=== PATIENT | male | born 1975 | race Caucasian/White ===

== ENCOUNTER 2016-07-07 15:57 | Emergency (ER) ==
[2016-07-07 16:03] VITALS: BP 107/75; TEMP 98.3; BMI 26.6
--- NOTE | 2016-07-07 16:27 | ED.PDOC ---
General ED Provider: Dr. CORTNEY LOPEZ-ER Chief Complaint: Ankle Pain/Injury Stated Complaint: im under tx for bone infection from dr holt [place] [facility] [employer]- -im on antbx and have appt soon for recheck but i am out of my pain meds Time Seen by Physician: 16:25 Mode of Arrival: Wheelchair Information Source: Patient Exam Limitations: No limitations Primary Care Provider: RADHA CODY Nursing and Triage Documentation Reviewed and Agree: Yes Musculoskeletal Complaint Exam - Ankle/Foot Complaint/Exam Location of Injury: Reports: Left, Ankle, Foot Mechanism of Injury: Reports: Trauma Onset/Duration: several days Symptoms Are: Reports: Still present Onset of Pain: Reports: Immediate Initial Severity: Mild Current Severity: Moderate Location: Reports: Discrete (left foot ankle) Character: Reports: Dull, Aching Alleviating: Reports: None Aggravating: Reports: Movement, Weight bearing Able to Bear Weight: No Associated Signs and Symptoms: Denies: Swelling, Redness, Bruising, Fever, Weakness, Numbness, Tingling Gout Risk Factors: Reports: >40 years old, Male Related Surgical History: Reports: Left, Ankle Lower Extremity Findings: Present: Erythema, Tenderness Achilles Tendon Abnormality: No Tenderness: Present: Lateral malleolus Limited Range of Motion: Present: Inversion, Eversion Differential Diagnosis: Infection Review of Systems - Review Of Systems Constitutional: Reports: No symptoms Eyes: Reports: No symptoms Ears, Nose, Mouth, Throat: Reports: No symptoms Respiratory: Reports: No symptoms Cardiac: Reports: No symptoms GI: Reports: No symptoms : Reports: No symptoms Musculoskeletal: Reports: Joint pain Skin: Reports: No symptoms Neurological: Reports: No symptoms Endocrine: Reports: No symptoms Hematologic/Lymphatic: Reports: No symptoms All Other Systems: Reviewed and Negative Past Medical History - Past Medical History Endocrine: Reports: Unknown Cardiovascular: Reports: Unknown Respiratory: Reports: Unknown Hematological: Reports: Unknown Gastrointestinal: Reports: Unknown Genitourinary: Reports: Unknown Neuro/Psych: Reports: Unknown Musculoskeletal: Reports: Unknown Cancer: Reports: Unknown - Surgical History General Surgical History: Reports: Unknown - Family History Family History: Reports: Unknown - Social History Smoking Status: Never smoker Hx Substance Use: No Alcohol Screening: None Lives: With family Physical Exam - Physical Exam Appearance: Well-appearing Pain Distress: Moderate Eyes: PACO, EOMI, Conjunctiva clear ENT: Ears normal, Nose normal, Oropharynx normal Neck: Supple Respiratory: Airway patent, Breath sounds clear, Breath sounds equal, Respirations nonlabored Cardiovascular: RRR, Pulses normal, No rub, No murmur GI/: Soft, Nontender, No masses, Bowel sounds normal, No Organomegaly Musculoskeletal: Limited ROM Skin: Warm, Dry, Normal color Neurological: Sensation intact Psychiatric: Affect appropriate, Mood appropriate Critical Care Note - Critical Care Note Total Time (mins): 0 Course - Course Vital Signs: Temp Pulse Resp BP Pulse Ox 07/07/16 15:58 98.3 F 83 18 107/75 95 Departure - Departure Time of Disposition: 16:27 Disposition: HOME SELF-CARE Discharge Problem: Osteomyelitis Qualifiers: Osteomyelitis location: ankle Laterality: left Chronicity: chronic Qualifier Code: (M86.672) Other chronic osteomyelitis, left ankle and foot Instructions: Osteomyelitis (ED) Condition: Good Pt referred to PMD for follow-up: Yes Additional Instructions: continue antbx and wound care and dressing changes--norco 10mg qid prn pain #16- --f/u with your doctor Allergies/Adverse Reactions: Allergies hydromorphone [From Dilaudid] Adverse Reaction (Verified 07/07/16 16:03) Penicillins Adverse Reaction (Verified 07/07/16 16:03) Home Medications: Ambulatory Orders 1 [No Reported Medications] 07/07/16 Disposition Discussed With: Patient, Family
== END 2016-07-07 16:33 | disposition home or self-care (01) ==
LOC: ED 15:57
DX: M86.672 Other chronic osteomyelitis, left ankle and foot (principal)
CPT/HCPCS: 99282

== ENCOUNTER 2016-07-29 00:31 | Emergency (ER) ==
--- NOTE | 2016-07-29 00:40 | ED.PDOC ---
General ED Provider: Dr. CORTNEY LOPEZ-ER Chief Complaint: Foot Pain/Injury Stated Complaint: my heel is broken--i called my ortho in [place] today--didnt get a call back--ran out of pills today Time Seen by Physician: 00:38 Mode of Arrival: Walk-In Information Source: Patient Exam Limitations: No limitations Nursing and Triage Documentation Reviewed and Agree: Yes Musculoskeletal Complaint Exam - Ankle/Foot Complaint/Exam Location of Injury: Reports: Left, Foot Mechanism of Injury: Reports: Trauma Onset/Duration: several weeks Symptoms Are: Reports: Still present Onset of Pain: Reports: Immediate Initial Severity: Mild Current Severity: Moderate Location: Reports: Discrete Character: Reports: Dull, Aching Alleviating: Reports: None Aggravating: Reports: Movement, Weight bearing, Prolonged standing Able to Bear Weight: No Associated Signs and Symptoms: Reports: Swelling. Denies: Redness, Bruising, Fever, Weakness, Numbness, Tingling Gout Risk Factors: Reports: None Related Surgical History: Reports: None Lower Extremity Findings: Present: Swelling, Tenderness, Limited range of motion Achilles Tendon Abnormality: No Tenderness: Present: Heel Differential Diagnosis: Closed Fracture Review of Systems - Review Of Systems Constitutional: Reports: No symptoms Eyes: Reports: No symptoms Ears, Nose, Mouth, Throat: Reports: No symptoms Respiratory: Reports: No symptoms Cardiac: Reports: No symptoms GI: Reports: No symptoms : Reports: No symptoms Musculoskeletal: Reports: Other Skin: Reports: No symptoms Neurological: Reports: No symptoms Endocrine: Reports: No symptoms Hematologic/Lymphatic: Reports: No symptoms All Other Systems: Reviewed and Negative Past Medical History - Past Medical History Endocrine: Reports: Unknown Cardiovascular: Reports: Unknown Respiratory: Reports: Unknown Hematological: Reports: Unknown Gastrointestinal: Reports: Unknown Genitourinary: Reports: Unknown Neuro/Psych: Reports: Unknown Musculoskeletal: Reports: Unknown Cancer: Reports: Unknown - Surgical History General Surgical History: Reports: Unknown - Family History Family History: Reports: Unknown - Social History Smoking Status: Never smoker Hx Substance Use: No Alcohol Screening: None Lives: With family Physical Exam - Physical Exam Appearance: Well-appearing, No pain distress, Well-nourished Pain Distress: Moderate Eyes: PACO, EOMI, Conjunctiva clear ENT: Ears normal, Nose normal, Oropharynx normal Neck: Supple Respiratory: Airway patent, Breath sounds clear, Breath sounds equal, Respirations nonlabored Cardiovascular: RRR, Pulses normal, No rub, No murmur GI/: Soft, Nontender, No masses, Bowel sounds normal, No Organomegaly Musculoskeletal: Limited ROM Skin: Warm, Dry, Normal color Neurological: Sensation intact Psychiatric: Affect appropriate, Mood appropriate Critical Care Note - Critical Care Note Total Time (mins): 0 Departure - Departure Time of Disposition: 00:39 Disposition: HOME SELF-CARE Discharge Problem: Injury of foot Instructions: Calcaneal Fracture (ED) Condition: Good Pt referred to PMD for follow-up: Yes Additional Instructions: percocet 10mg q 4hrs prn#4---f/u wtih ortho tomorrow Allergies/Adverse Reactions: Allergies hydromorphone [From Dilaudid] Adverse Reaction (Verified 07/07/16 16:03) Penicillins Adverse Reaction (Verified 07/07/16 16:03) Home Medications: Ambulatory Orders 1 [No Reported Medications] 07/07/16 Disposition Discussed With: Patient, Family
[2016-07-29 00:54] VITALS: BP 102/60; TEMP 97.7; BMI 17.6
== END 2016-07-29 01:05 | disposition home or self-care (01) ==
LOC: ED 00:31
DX: S92.002A Unspecified fracture of left calcaneus, initial encounter for closed fracture (principal)
CPT/HCPCS: 99282

== ENCOUNTER 2016-07-30 00:01 | Emergency (ER) ==
[2016-07-30 00:01] VITALS: BMI 17.6
[2016-07-30 00:14] VITALS: BP 103/70; TEMP 99.2
--- NOTE | 2016-07-30 00:46 | ED.PDOC ---
General ED Provider: Dr. KORY PHILLIPS Chief Complaint: Wound Check Stated Complaint: Patient was here yesterday for the same reason, wanting pain medications, as he gets them from the doctor in [place], they mailed him the medications he should get them Time Seen by Physician: 00:43 Mode of Arrival: Walk-In Information Source: Patient Nursing and Triage Documentation Reviewed and Agree: Yes Skin Complaint Exam - Skin/Soft Tissue Complaint/Exam Symptoms Are: Still present Timing: Constant Initial Severity: Moderate Current Severity: Moderate Character: Reports: Swelling, Painful Aggravating: Reports: Touch Alleviating: Reports: None Associated Signs and Symptoms: Reports: Tenderness. Denies: Fever, Chills, Itching, Drainage, Bruising, Red streaks, Joint swelling Related History: Reports: Similar episode Related Surgical History: Reports: None Skin Findings: Present: Erythema (open wound on the left heal, ) Differential Diagnoses: Infection (chronic) Review of Systems - Review Of Systems Constitutional: Reports: No symptoms Eyes: Reports: No symptoms Ears, Nose, Mouth, Throat: Reports: No symptoms Respiratory: Reports: No symptoms Cardiac: Reports: No symptoms GI: Reports: No symptoms : Reports: No symptoms Musculoskeletal: Reports: No symptoms Skin: Reports: No symptoms Neurological: Reports: No symptoms Endocrine: Reports: No symptoms Hematologic/Lymphatic: Reports: No symptoms All Other Systems: Reviewed and Negative Past Medical History - Past Medical History Previously Healthy: Yes Endocrine: Reports: Unknown Cardiovascular: Reports: Unknown Respiratory: Reports: Unknown Hematological: Reports: Unknown Gastrointestinal: Reports: Unknown Genitourinary: Reports: Unknown Neuro/Psych: Reports: Unknown Musculoskeletal: Reports: Unknown Cancer: Reports: Unknown - Surgical History General Surgical History: Reports: Orthopedic (left heal surgery) - Family History Family History: Reports: Unknown - Social History Smoking Status: Never smoker Hx Substance Use: No Alcohol Screening: None - Immunizations Tetanus Shot up to Date: Yes Physical Exam - Physical Exam Appearance: Well-appearing, No pain distress, Well-nourished Eyes: PACO, EOMI, Conjunctiva clear ENT: Ears normal, Nose normal, Oropharynx normal Respiratory: Airway patent, Breath sounds clear, Breath sounds equal, Respirations nonlabored Cardiovascular: RRR, Pulses normal, No rub, No murmur GI/: Soft, Nontender, No masses, Bowel sounds normal, No Organomegaly Musculoskeletal: Normal strength, ROM intact, No edema, No calf tenderness Skin: Warm, Dry, Normal color Neurological: Sensation intact, Motor intact, Reflexes intact, Cranial nerves intact, Alert, Oriented Psychiatric: Affect appropriate, Mood appropriate Critical Care Note - Critical Care Note Total Time (mins): 0 Course - Course Vital Signs: Temp Pulse Resp BP Pulse Ox 07/30/16 00:02 99.2 F 84 20 103/70 99 Departure - Departure Time of Disposition: 00:48 Disposition: HOME SELF-CARE Discharge Problem: Wound Instructions: Wound Healing and Your Diet (ED) Condition: Stable Pt referred to PMD for follow-up: Yes Additional Instructions: advised stricly that he needs f/u with surgeon, risk of amputation discussed. Prescriptions: Oxycodone HCl/Acetaminophen [Percocet 7.5-325 mg Tablet] 1 tab PO TID PRN #3 tablet PRN Reason: PAIN Allergies/Adverse Reactions: Allergies hydromorphone [From Dilaudid] Adverse Reaction (Verified 07/29/16 00:54) Difficulty Swallowing Penicillins Adverse Reaction (Verified 07/07/16 16:03) Home Medications: Ambulatory Orders Gabapentin [Neurontin] 600 mg PO TID 07/29/16 Oxycodone-Acetaminophen 10-325 [Percocet 10-325] 1 tab PO Q4-6H PRN 07/29/16 Oxycodone HCl/Acetaminophen [Percocet 7.5-325 mg Tablet] 1 tab PO TID PRN #3 tablet 07/30/16 Disposition Discussed With: Patient, Family
== END 2016-07-30 00:51 | disposition home or self-care (01) ==
LOC: ED 00:01
DX: S91.312D Laceration without foreign body, left foot, subsequent encounter (principal); M79.672 Pain in left foot; G89.29 Other chronic pain
CPT/HCPCS: 99282; 99284

== ENCOUNTER 2016-07-30 11:15 | Emergency (ER) ==
[2016-07-30 11:28] VITALS: BP 96/67; TEMP 97.8; BMI 18.3
--- NOTE | 2016-07-30 11:37 | ED.PDOC ---
General ED Provider: Dr. JAZMIN DIALLO JR Chief Complaint: Wound Check Stated Complaint: Pt seen this ER yesterday et also 07/07/16 for same. States was only given 3 Percocet tabs 7.5 mg. States needs more. Has appt with ortho in 3 days. Also states his Ortho dr Yovany) in [place] has mailed a prescription for pain med to him. Should receive on 08/02. Last pain med taken at 0830 this am. [ End ]97.8 88 20 98% 96/67 03/18. LEFT ANKLE. RIGHT HIP AND KNEE. No: 3rd ER visit from [place], [place] for pain med Time Seen by Physician: 11:37 Information Source: Patient Exam Limitations: No limitations Nursing and Triage Documentation Reviewed and Agree: Yes Review of Systems - Review Of Systems Constitutional: Reports: No symptoms Eyes: Reports: No symptoms Ears, Nose, Mouth, Throat: Reports: No symptoms Respiratory: Reports: No symptoms Cardiac: Reports: No symptoms GI: Reports: No symptoms : Reports: No symptoms Musculoskeletal: Reports: Joint pain, Other (left foot pain) Skin: Reports: Lesions (open healing lesion left heel nontender dry withmuscle at base no sign of chronic(diagnosed infection)) Neurological: Reports: No symptoms Endocrine: Reports: No symptoms Hematologic/Lymphatic: Reports: No symptoms All Other Systems: Other Past Medical History - Past Medical History Previously Healthy: Yes Endocrine: Reports: Unknown Cardiovascular: Reports: Unknown Respiratory: Reports: Unknown Hematological: Reports: Unknown Gastrointestinal: Reports: Unknown Genitourinary: Reports: Unknown Neuro/Psych: Reports: Unknown Musculoskeletal: Reports: Unknown Cancer: Reports: Unknown - Surgical History General Surgical History: Reports: Orthopedic (left heal surgery) - Family History Family History: Reports: Unknown - Social History Smoking Status: Never smoker Hx Substance Use: No (3rd ER visit from [place], [place] for pain med) Alcohol Screening: None Physical Exam - Physical Exam Appearance: Well-appearing, Thin Pain Distress: Moderate Neck: Supple Respiratory: Airway patent Cardiovascular: RRR, Pulses normal, No rub, No murmur (on close auscultation) Skin: Warm, Dry, Normal color Critical Care Note - Critical Care Note Total Time (mins): 0 Course - Course Orders, Labs, Meds: Orders Category Date Time Status Oxycodone-Acetaminophen 10-325 [Percocet 10-325] MEDS 07/30/16 11:39 Discontinued 1 tab PO ONCE STA Medications Discontinued Medications Generic Name Dose Route Start Last Admin Trade Name Eric PRN Reason Stop Dose Admin Oxycodone/Acetaminophen 1 tab 07/30/16 11:39 Percocet 10-325 PO 07/30/16 11:40 ONCE STA Vital Signs: Temp Pulse Resp BP Pulse Ox 07/30/16 11:18 97.8 F 88 20 96/67 98 Departure - Departure Time of Disposition: 12:06 Disposition: HOME SELF-CARE Discharge Problem: Chronic pain in left foot, Healing laceration Instructions: Foot Care for People with Diabetes (ED), Chronic Wound Care (ED) Condition: Stable Pt referred to PMD for follow-up: Yes Additional Instructions: pain medications should not be refilled by ER best not to take maximum amount of pain medicine each day Allergies/Adverse Reactions: Allergies hydromorphone [From Dilaudid] Adverse Reaction (Verified 07/30/16 11:29) Difficulty Swallowing Penicillins Adverse Reaction (Verified 07/30/16 11:29) Home Medications: Ambulatory Orders Gabapentin [Neurontin] 600 mg PO TID 07/29/16 Oxycodone-Acetaminophen 10-325 [Percocet 10-325] 1 tab PO Q4-6H PRN 07/29/16
[2016-07-30] MEDS ORDERED: PERCOCET 10-325 PO STA (11:39)
== END 2016-07-30 12:27 | disposition left against medical advice (07) ==
LOC: ED 11:15
DX: S91.312D Laceration without foreign body, left foot, subsequent encounter (principal); M79.672 Pain in left foot; G89.29 Other chronic pain
CPT/HCPCS: 99284

== ENCOUNTER 2016-12-02 16:43 | Emergency (ER) ==
[2016-12-02 16:50] VITALS: BP 99/66; TEMP 98.2; BMI 16.4
[2016-12-02] MEDS ORDERED: NORCO 10-325 PO STA (17:12)
[2016-12-02] MEDS ORDERED: ZOFRAN 4 MG/2 ML IM STA (17:13)
[2016-12-02 17:22] LABS: BASOPHILS # (AUTO) 0.1 K/uL (0-0.2); BASOPHILS % (AUTO) 0.5 % (0.0-3.0); EOSINOPHILS # (AUTO) 0.2 K/ul (0.0-0.7); EOSINOPHILS % (AUTO) 1.7 % (0.0-7.0); HEMOGLOBIN 10.8 g/dl (14.0-18.0); IMMATURE GRANULOCYTE % (AUTO) 0.2 % (0.0-5.0); LYMPHOCYTES # (AUTO) 2.3 K/uL (0.60-3.4); LYMPHOCYTES % (AUTO) 22.8 (10.0-50.0); MEAN CORPUSCULAR HEMOGLOBIN 28.6 pg (27.0-31.0); MEAN CORPUSCULAR HGB CONC 31.8 (31.8-35.4); MEAN CORPUSCULAR VOLUME 90.2 fl (80.0-94.0); MONOCYTES # (AUTO) 0.6 K/uL (0.4-2.0); MONOCYTES % (AUTO) 5.7 (0-10); NEUTROPHILS # (AUTO) 6.9 K/ul (2.0-6.9); NEUTROPHILS % (AUTO) 69.1; PLATELET COUNT 325 10^3/uL (140-440); RED BLOOD COUNT 3.77 10^6/ul (4.70-6.10); WHITE BLOOD COUNT 9.91 K/ul (4.2-10.2)
[2016-12-02 17:25] LABS: BILIRUBIN,URINE Negative (NEGATIVE); KETONES,URINE Negative (NEGATIVE); LEUKOCYTE ESTERASE ,URINE Negative (NEGATIVE); NITRITE,URINE Negative (NEGATIVE); PH,URINE 6.5 (5-9); PROTEIN,URINE Negative (NEGATIVE); URINE, BLOOD Negative (NEGATIVE)
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
--- NOTE | 2016-12-02 17:47 | CT ---
EXAM: CT THORAX HISTORY: Pain, trauma. TECHNIQUE: CT thorax without intravenous contrast. 5-mm axial sections. Coronal and sagittal re-fo rmations. COMPARISON: None FINDINGS: Normal heart size. No pericardial effusion. Thoracic aorta is within normal limits. Evaluation of the mediastinum and hilar structures is limited without the administration of intravenous contrast agent. There are multiple calcified lymph nodes within the mediastinum and kaela. No well-defined a ctive lymphadenopathy or regional mass is obvious. Lungs are hyperinflated. There is evidence of moderate emphysema and scattered fibrosis. There is bilateral bronchiectasis. Innumerable tiny punctate calcifications within the lungs consistent with old granulomatous disease. There is a stellate oval shaped opacity measuring 0.75 cm located in th e posterior medial aspect of the left lower lobe which is probably related to scarring. Early devel opment of neoplasia is not completely excluded although probably less likely in this setting. No def inite acute infiltrate. No vascular congestion, pneumothorax or pleural fluid. No acute bony abnormality identified. Prominent thyroid gland. A few nonspecific prominent lymph n odes in the right axilla. IMPRESSION: 1. No acute injuries identified. 2. Moderately severe fibrosis and emphysema with bronchiectasis. Stellate 0.75 cm nodular opacity in the posterior medial aspect of the right lower lobe probably related to fibrosis. Consider follo w-up CT thorax in 4 months to reevaluate for stability. 3. Old granulomatous disease. 4. Prominent thyroid gland. 5. A few prominent nonspecific right axillary lymph nodes.
[2016-12-02 17:55] LABS: ADD URINE MICROSCOPIC NO
[2016-12-02 17:58] LABS: ALANINE AMINOTRANSFERASE 17 U/L (12-78); ALBUMIN 3.1 g/dL (3.4-5.0); ALKALINE PHOSPHATASE 70 U/L (50-136); ANION GAP 12.1; ASPARTATE AMINO TRANSFERASE 16 U/L (15-37); BILIRUBIN,TOTAL 0.14 mg/dL (0.00-1.20); BLOOD UREA NITROGEN 16 mg/dL (7-18); CARBON DIOXIDE 27 mmol/L (21-32); CHLORIDE 108 mmol/L (98-107); CREATINE KINASE 281 U/L; GLUCOSE 108 mg/dL (70-100); POTASSIUM 4.1 mmol/L (3.5-5.1); SODIUM 143 mmol/L (136-145); TOTAL PROTEIN 6.2 g/dL (6.4-8.2)
[2016-12-02 18:07] LABS: CREATINE KINASE MB 1.2 ng/ml (0.0-3.6)
== END 2016-12-02 18:16 | disposition home or self-care (01) ==
LOC: ED 16:43
DX: R07.89 Other chest pain (principal); W22.8XXA Striking against or struck by other objects, initial encounter
CPT/HCPCS: 36415; 80053; 81001; 82550; 82553; 84484; 85025; 93005; 93010; 99283